=== PATIENT | male | born 1990 | race Two or more races ===

== ENCOUNTER 2019-04-30 13:42 | Emergency (ER) | payer BC, OTHER ==
[~2019-04-30] VITALS: Ht 175.3 cm; Wt 91.0 kg
[2019-04-30 18:08] LABS: CLARITY URINE CLEAR (CLEAR); COLOR URINE YELLOW (YELLOW); KETONES URINE 1+ (NEGATIVE); LEUKOCYTE ESTERASE URINE NEGATIVE (NEGATIVE); NITRITE URINE NEGATIVE (NEGATIVE); OCCULT BLOOD URINE NEGATIVE (NEGATIVE); PH URINE 6.5 (4.5-8.0); PROTEIN URINE NEGATIVE (NEGATIVE); SPECIFIC GRAVITY URINE 1.021 (1.005-1.030); UROBILINOGEN URINE 0.2 E.U./dL (0.2-1.0)
[2019-04-30 18:30] VITALS: BP 124/77
== END 2019-04-30 19:07 | disposition home or self-care (01) ==
LOC: ER 13:42
DX: M54.5 Low back pain (principal); R10.9 Unspecified abdominal pain; N50.82 Scrotal pain; N50.3 Cyst of epididymis
CPT/HCPCS: 76870; 81003; 93976; 99284

== ENCOUNTER 2019-05-10 11:46 | Emergency (ER) | payer BC ==
[~2019-05-10] VITALS: Ht 175.3 cm; Wt 91.0 kg
[2019-05-10 18:41] LABS: BASOPHILS % 0.7 % (0.0-2.0); EOSINOPHILS % 2.7 % (0.0-5.0); HEMATOCRIT. 43.9 % (42.0-52.0); HEMOGLOBIN. 15.2 g/dL (14.0-18.0); LYMPHOCYTES % 40.3 % (20.0-50.0); MEAN CORPUSCULAR HEMOGLOBIN 30.2 pg (28.0-32.0); MEAN CORPUSCULAR VOLUME 87.4 fL (80.0-94.0); MEAN PLATELET VOLUME 9.6 fl (7.4-10.4); MONOCYTES % 8.5 % (2.0-8.0); NEUTROPHILS % 47.8 % (40.0-76.0); PLATELET 170 x1000/uL (130-400); RED BLOOD CELL COUNT 5.03 mill/uL (4.7-6.1); RED CELL DISTRIBUTION WIDTH 13.3 % (11.6-14.6)
[2019-05-10 18:42] LABS: CHLORIDE 105 mEq/L (98-107)
[2019-05-10] MEDS ORDERED: SODIUM CHLORIDE 0.9% 1,000 ML IV ONE (19:00)
[2019-05-10] MEDS ORDERED: KETOROLAC 30MG/ML VIAL IV ONE (19:00)
[2019-05-10 19:32] LABS: CLARITY URINE CLEAR (CLEAR); COLOR URINE YELLOW (YELLOW); KETONES URINE NEGATIVE (NEGATIVE); LEUKOCYTE ESTERASE URINE NEGATIVE (NEGATIVE); NITRITE URINE NEGATIVE (NEGATIVE); OCCULT BLOOD URINE NEGATIVE (NEGATIVE); PROTEIN URINE NEGATIVE (NEGATIVE); SPECIFIC GRAVITY URINE 1.004 (1.005-1.030); UROBILINOGEN URINE 0.2 E.U./dL (0.2-1.0)
[2019-05-10] MEDS ORDERED: MAGNESIUM CITRATE 300ML SOLUTION PO ONE (23:30)
[2019-05-10 23:33] VITALS: BP 126/78
== END 2019-05-10 23:35 | disposition home or self-care (01) ==
LOC: ER 13:40
DX: K59.00 Constipation, unspecified (principal); R10.9 Unspecified abdominal pain
CPT/HCPCS: 36415; 74176; 80053; 81003; 82962; 85025; 96374; 99284; J1885; J7030

== ENCOUNTER 2024-07-20 21:29 | Emergency (ER) | payer BC, MEDICAID ==
[~2024-07-20] VITALS: Ht 175.3 cm; Wt 99.0 kg
[2024-07-20 21:54] VITALS: O2SAT 100
[2024-07-20] MEDS ORDERED: ONDANSETRON HCL 4MG/2ML INJ IV ONE (23:00)
[2024-07-20] MEDS ORDERED: AZITHROMYCIN 500MG/250ML 250 ML IV SCH ×2 (23:00)
[2024-07-20] MEDS ORDERED: METR375C2 MT (23:14)
[2024-07-20 23:21] LABS: CHLORIDE 103 mEq/L (98-107); POTASSIUM 4.4 mEq/L (3.5-5.1); SODIUM 139 mEq/L (136-145)
[2024-07-20 23:22] LABS: CALCIUM 10.2 mg/dL (8.7-10.4); CARBON DIOXIDE 27 mEq/L (21-32)
[2024-07-20 23:23] LABS: BASOPHILS % 1.1 % (0.0-2.0); HEMATOCRIT. 48.3 % (42.0-52.0); HEMOGLOBIN. 16.5 g/dL (14.0-18.0); LYMPHOCYTES % 39.9 % (20.0-50.0); MEAN CORPUSCULAR HGB CONC 34.2 g/dL (31.0-37.0); MEAN CORPUSCULAR VOLUME 90.5 fL (80.0-94.0); MEAN PLATELET VOLUME 9.8 fl (7.4-10.4); MONOCYTES % 10.2 % (2.0-8.0); NEUTROPHILS % 46.8 % (40.0-76.0); PLATELET 250 x1000/uL (130-400); RED BLOOD CELL COUNT 5.33 mill/uL (4.7-6.1); RED CELL DISTRIBUTION WIDTH 13.7 % (11.6-14.6); WHITE BLOOD COUNT 8.6 x1000/uL (4.5-11.0)
[2024-07-20 23:27] LABS: CREATININE 0.9 mg/dL (0.6-1.3); GLUCOSE 110 mg/dL (70-105); UREA NITROGEN BLOOD 10 mg/dL (9-23)
[2024-07-20 23:29] LABS: ALANINE AMINOTRANSFERASE 114 IU/L (10-49); ALBUMIN 4.6 g/dL (3.2-4.8); ASPARTATE AMINOTRANSFERASE 70 IU/L (<34)
[2024-07-20 23:30] LABS: BILIRUBIN TOTAL 0.4 mg/dL (0.1-1.0); PROTEIN TOTAL 7.5 g/dL (6.0-8.3)
[2024-07-20] MEDS: AZITHROMYCIN 500 MG TABLET PO SCH (23:34)
[2024-07-20] MEDS: ONDANSETRON 4MG ODT PO ONE (23:35)
[2024-07-20 23:57] LABS: BILIRUBIN DIRECT < 0.1 mg/dL (<=3.0)
[2024-07-21 00:27] LABS: CLARITY URINE CLEAR (CLEAR); COLOR URINE YELLOW (YELLOW); GLUCOSE URINE NEGATIVE (NEGATIVE); KETONES URINE NEGATIVE (NEGATIVE); LEUKOCYTE ESTERASE URINE NEGATIVE (NEGATIVE); NITRITE URINE NEGATIVE (NEGATIVE); OCCULT BLOOD URINE NEGATIVE (NEGATIVE); PH URINE 6.5 (4.5-8.0); PROTEIN URINE NEGATIVE (NEGATIVE); SPECIFIC GRAVITY URINE 1.018 (1.005-1.030); UROBILINOGEN URINE 0.2 E.U./dL (0.2-1.0)
[2024-07-21 00:40] VITALS: BP 132/71; PULSE 66; RESP 18; TEMP 36.44736; O2SAT 100
== END 2024-07-21 04:00 | disposition home or self-care (01) ==
LOC: ER 21:29
DX: R10.13 Epigastric pain (principal); R19.7 Diarrhea, unspecified
CPT/HCPCS: 74176; 80076; 80048; 83690; 85025; 36415; 99284; 81003; Q0162; 96374